=== PATIENT | female | born 1955 | race Caucasian/White ===

== ENCOUNTER 2019-05-08 18:48 | Emergency (ER) | payer OTHER ==
[~2019-05-08] VITALS: Ht 170.2 cm; Wt 78.7 kg
[2019-05-08] MEDS ORDERED: CRESTOR10 MG PO (18:55)
[2019-05-08 19:27] LABS: URINE BILIRUBIN NEGATIVE (Negative); URINE BLOOD NEGATIVE (Negative); URINE CLARITY CLEAR; URINE COLOR YELLOW; URINE GLUCOSE-RANDOM NEGATIVE (Negative); URINE KETONES NEGATIVE (Negative); URINE NITRITE-REFLEX NEGATIVE (Negative); URINE PROTEIN NEGATIVE (Negative); URINE UROBILINOGEN 0.2 E.U./dl (0.2-1.0)
[2019-05-08 19:33] LABS: ABSOLUTE EOSINOPHILS 0.1 thou/uL (0.0-0.7); ABSOLUTE LYMPHOCYTES 1.6 thou/uL (0.8-5.3); ABSOLUTE MONOCYTES 0.5 thou/uL (0.0-1.2); ABSOLUTE NEUTROPHILS 6.5 thou/uL (1.6-8.1); BASOPHILS 0.5 %; EOSINOPHILS 0.7 %; HEMATOCRIT 39.2 % (37.0-47.0); LYMPHOCYTES 17.9 %; MCH 25.5 pg (26.0-34.0); MCHC 33.1 g/dL (28.0-37.0); MCV 76.9 fL (80.0-100.0); MONOCYTES 6.2 %; MPV 8.2 fl. (7.2-11.1); NUCLEATED RBCS 0 /100WBC; PLATELET COUNT* 342 thou/uL (150-400); POLYS 74.7 %; RBC 5.09 mil/uL (4.20-5.00); RDW-CV 18.3 % (10.5-14.5); WBC 8.7 thou/uL (4.0-11.0)
[2019-05-08 19:44] LABS: URINE LEUKOCYTES-REFLEX 2+ (Negative)
[2019-05-08 19:45] LABS: INR 0.9; PROTIME 9.7 Seconds (9.20-11.50)
[2019-05-08 19:51] LABS: ANION GAP 7 mmol/L (7-16); BUN 11 mg/dL (7-18); CALCIUM 8.4 mg/dL (8.5-10.1); CHLORIDE 106 mmol/L (98-107); CO2 30 mmol/L (21-32); CREATININE 0.8 mg/dL (0.6-1.3); GLUCOSE 96 mg/dL (70-99); POTASSIUM 3.7 mmol/L (3.5-5.1); SODIUM 143 mmol/L (136-145)
[2019-05-08 19:54] LABS: SQUAMOUS 0-3 Few /LPF (0-3); URINE WBC-REFLEX 0-5 Rare /HPF (0-5)
[2019-05-08 19:54] LABS: ALBUMIN 3.7 g/dL (3.4-5.0); ALKALINE PHOSPHATASE 92 U/L (46-116); NT-PRO BRAIN NAT PEPTIDE 61 pg/mL (<300); SGOT 12 U/L (15-37); SGPT 21 U/L (30-65); TOTAL BILIRUBIN 0.2 mg/dL (<0.1-1.0); TOTAL PROTEIN 7.2 g/dL (6.4-8.2); TROPONIN-I LEVEL <0.06 ng/mL (<0.06)
[2019-05-08 19:55] LABS: BACTERIA-REFLEX 1-9 Few /HPF (None Seen); CASTS None Seen /LPF (None Seen); CRYSTALS None Seen /LPF (None Seen); URINE RBC 0-2 Rare /HPF (0-2)
[2019-05-08 20:12] LABS: BE -2.6 mmol/L (-2 to +3); PCO2 34.8 mmHg (35.0-45.0); PO2 76.6 mmHg (75.0-100.0); pH 7.407 (7.340-7.450)
[2019-05-08 22:42] VITALS: BP 136/64
--- NOTE | 2019-05-09 11:49 | EKG ---
[place] [address] ELECTROCARDIOGRAM REPORT Name: DAISY MARQUEZ [id number] Admission: 05/08/19 Attend Phys: Discharge: 05/08/19 Date of : 55 Report #: [id number] THIS REPORT FOR: //name// [facility] ED Test Date: 2019-05-08 Test Time: 18:55:44 Pat Name: DAISY MARQUEZ Department: Room: Gender: F [employer]: : 1955 Requested By: Brittney Zurita Order Number: [id number] MD: Irwin Johnson Measurements Intervals [place] Rate: 66 P: 23 [place]: 182 QRS: 21 QRSD: 94 T: 8 QT: 392 QTc: 411 Interpretive Statements Sinus rhythm Inferior infarct, old No previous ECG available for comparison Electronically Signed On 05-09-2019 11:48:49 CDT by Irwin Johnson [email or web address] <ELECTRONICALLY SIGNED> By: Roula Johnson MD, [facility] 05/09/19 1148 1855 1855 Roula Johnson MD, FAC /EPI
== END 2019-05-08 22:42 | disposition home or self-care (01) ==
LOC: M.ERS 18:48
PROVIDERS: Emergency Medicine
DX: R41.0 Disorientation, unspecified (principal); Z90.710 Acquired absence of both cervix and uterus